=== PATIENT | female | born 1975 | race Two or more races ===

== ENCOUNTER → 2022-09-19 13:46 | Outpatient (BNVA) | payer OTHER, SELFPAY | PROVIDERS: PCP Internal Medicine; Visit Provider Nurse Practitioner Family | DX: R06.83 Snoring (principal); R40.0 Somnolence | CPT/HCPCS: 99202 ==

== ENCOUNTER → 2022-11-30 10:27 | Outpatient (BNVA) | payer OTHER, SELFPAY | PROVIDERS: PCP Nurse Practitioner Family; Visit Provider Nurse Practitioner Family | DX: R40.0 Somnolence (principal); R06.83 Snoring; G47.00 Insomnia, unspecified | CPT/HCPCS: 99212 ==